=== PATIENT | male | born 1995 | race Caucasian/White ===

== ENCOUNTER 2020-09-25 14:33 | Emergency (ER) | payer MEDICAID ==
[~2020-09-25] VITALS: Ht 170.2 cm; Wt 86.4 kg
[2020-09-25 14:52] VITALS: BP 153/98
--- NOTE | 2020-09-25 15:01 | NUR ---
INFORMED SARA SANCHEZ OF HR 124. OK WITH HIM FOR DISCHARGE PT HAS HX OF ANXIETY WHICH HE TAKES MEDS FOR.
== END 2020-09-25 15:10 | disposition home or self-care (01) ==
LOC: ER 14:34
DX: U07.1 COVID-19 (principal)
CPT/HCPCS: 36415; 87635; 99283

== ENCOUNTER 2023-05-25 00:23 | Emergency (ER) | payer MEDICARE, MEDICAID ==
[~2023-05-25] VITALS: Ht 177.8 cm; Wt 72.8 kg
[2023-05-25 00:35] VITALS: BP 146/105; PULSE 102; RESP 18; O2SAT 98
[2023-05-25 01:03] VITALS: TEMP 98.8
== END 2023-05-25 01:06 | disposition home or self-care (01) ==
LOC: ER 00:24
DX: F16.90 Hallucinogen use, unspecified, uncomplicated (principal); T78.1XXA Other adverse food reactions, not elsewhere classified, initial encounter; X58.XXXA Exposure to other specified factors, initial encounter
CPT/HCPCS: 99281